=== PATIENT | female | born 1975 | race Caucasian/White ===

== ENCOUNTER 2025-08-11 12:19 | Outpatient (CLI) | payer BC, SELFPAY | END 2025-08-11 23:59 | disposition home or self-care (01) | LOC: LAB.DROPOF 08-12 12:20 | PROVIDERS: PCP Student in an Organized Health Care Education/Training Program; Visit Provider Student in an Organized Health Care Education/Training Program | DX: N39.0 Urinary tract infection, site not specified (principal) | CPT/HCPCS: 87086 ==

== ENCOUNTER 2025-08-12 01:12 | Observation (INO) | payer BC, SELFPAY ==
[2025-08-12] VITALS (14 sets, daily range): BP systolic 100–159; BP diastolic 61–90; PULSE 56–88; RESP 15–20; TEMP 36.6–37; O2SAT 98–100; BMI 21.7
--- NOTE | 2025-08-12 | US_ITS ---
Ultrasound Sonograher: PROCEDURE: US PELVIC CLINICAL INDICATION: COMPARISON: No exams were available for comparison FINDINGS: Transabdominal sonographic images of the pelvis were obtained. Ultrasound was performed intraoperatively during a dilation of the cervix. Patient had retained menses within the uterus. Post dilation the fluid collection was completely resolved. IMPRESSION: 1. Successful dilation of the cervix and evacuation of retained menses. Dictated by: Guille Cruz MD 08/12/2025 16:32 Guille Cruz MD in OV 08/12/2025 16:32
--- NOTE | 2025-08-12 01:20 | CT_ITS ---
PROCEDURE INFORMATION: Exam: CT Abdomen And Pelvis With Contrast Exam date and time: 08/12/2025 2:04 AM Age: 49 years old Clinical indication: Abdominal pain; Additional info: Lower abd pain, amenstrual since delivery 7 mo ago TECHNIQUE: Imaging protocol: Computed tomography of the abdomen and pelvis with contrast. Total images: 272 Radiation optimization: All CT scans at this facility use at least one of these dose optimization techniques: automated exposure control; mA and/or kV adjustment per patient size (includes targeted exams where dose is matched to clinical indication); or iterative reconstruction. Contrast material: ISOVUE; Contrast volume: 75 ml; Contrast route: IV; COMPARISON: No relevant prior studies available. FINDINGS: Lungs: 3 mm juxtapleural right lower lobe nodule, axial image 9. Lung bases are otherwise clear. For patients at low risk (minimal or absent history of smoking and of other known risk factors), no routine follow-up is indicated. For patients at high risk (history of smoking or of other known risk factors), consider optional CT Chest at 12 months. (Reference: Tashia) Heart: Normal heart size. Liver: Focal fatty infiltration near the falciform ligament. 2.8 cm right hepatic lobe cavernous hemangioma with peripheral nodular enhancement. 2 cm left hepatic lobe cavernous hemangioma with peripheral nodular enhancement. Gallbladder and biliary ducts: Normal. No calcified stones. No ductal dilation. Pancreas: Normal. No ductal dilation. Spleen: Normal. No splenomegaly. Adrenal glands: Normal. No mass. Kidneys and ureters: 2-3 mm left intrarenal calculus. No hydronephrosis. Otherwise, unremarkable kidneys. Stomach and bowel: Collapsed stomach. Unremarkable duodenum. No ileus or bowel obstruction. Small bowel appears within normal limits. Fecalization of the terminal ileum. Moderate colonic stool burden. Mild sigmoid diverticulosis without acute diverticulitis. Unremarkable rectum. Appendix: Normal appendix. Intraperitoneal space: No ascites. No free air. Vasculature: Nonaneurysmal abdominal aorta. Major abdominal vessels enhance appropriately. Lymph nodes: Unremarkable. No enlarged lymph nodes. Urinary bladder: Collapsed bladder. Reproductive: Fluid dilated endocervical and endometrial cavity. Anteverted nonenlarged uterus. No visible mass. Physiologic ovaries. Trace free pelvic fluid. Bones/joints: Scattered mild degenerative changes of the thoracolumbar spine. No acute osseous abnormality. Sclerotic bone island right acetabulum. Soft tissues: Tiny fat containing umbilical hernia. IMPRESSION: 1. Fluid dilated endocervical and endometrial cavity. Leading differential of cervical stenosis versus occult obstructing cervical/endocervical mass. 2. Trace free pelvic fluid. 3. Sigmoid diverticulosis without diverticulitis. 4. 2-3 mm left intrarenal calculus. 5. Two benign-appearing cavernous hemangiomas within the liver. REFERENCES: Tashia Streeter, et al. Guidelines for Management of Incidental Pulmonary Nodules Detected on CT Images: From the Fleischner Society 2017. Radiology. 2017;284(1):228-243.
--- NOTE | 2025-08-12 01:24 | HMH.EDGENADL ---
Discharge Plan Disposition Patient Disposition: Admitted Prescriptions Prescriptions: No Action PNV [id number] 90 mg iron- 1 mg-200 mg capsule 1 cap PO DAILY Referrals Follow up/Referrals: Provider,Referral, [Primary Care Provider, Medical] - See instructions Clinical Impressions Clinical Impression: Retained menstruation, Abdominal pain Instructions Patient Instructions: DI for Acute Abdominal Pain Print Language Print Language: [place] Discharge ED Provider: Luis Felipe Jacob General Adult HPI General Chief complaint: Abdominal Pain Stated complaint: abd pain, nausea Time Seen by Provider: 08/12/25 01:17 History of Present Illness HPI narrative: 49-year-old female, 7 months presents for lower abdominal pain. She reports been ongoing for last couple days but is now gotten significantly worse. She had a test and a urinalysis done urgent care earlier that were negative. She denies any menses for the last 7 months since she delivered. She reports some nausea. Denies any upper abdominal pain. Denies any fever at home. Related Data Home Medications ?Medication ?Instructions ?Recorded ?Confirmed vitamins no.102-iron 90 1 cap PO DAILY 06/20/25 06/20/25 mg-folate 1 mg-dha 200 mg capsule Allergies Allergy/AdvReac Type Severity Reaction Status Date / Time Sulfa (Sulfonamide Allergy Intermediate Hives Verified 08/11/25 17:53 Antibiotics) [facility] Disclaimer: The information contained in this section may have been updated after the patient was seen, as this information can be updated by other users. Medical History Dyshidrotic eczema Social History Smoking Status: Never smoker alcohol intake: never current occupational status: unemployed Travel in the last 8 weeks?: None Have you lived/traveled outside US in past 30 days?: No Contact w/someone who lives/traveled outside US past 30 days?: No Exposure to someone with infectious disease in past 14 days?: No Do you have a fever (greater than 100.4 F or 38 C)?: No Have you tested positive for COVID-19?: No Exposed to someone with COVID-19 in past 14 days?: No Do you have a sore throat?: No Do you have a cough?: No Do you have any weakness?: No Do you have any diarrhea?: No Are you experiencing any unusual bleeding?: No Do you have any muscle aches/pain?: No Do you have any abdominal pain?: Yes Are you experiencing loss of taste or smell?: No ROS Obtained: Yes All systems reviewed & no additional complaints except as documented Physical Exam General General appearance: alert and in no apparent distress Head Head exam: atraumatic and normocephalic Eye Eye exam: Present normal appearance, PERRL and EOMI ENT ENT exam: Present normal oropharynx and normal external ear exam Neck Neck exam: Present normal inspection and full ROM Chest Chest inspection: Present normal inspection and symmetric chest wall rise; Absent tenderness Respiratory Respiratory exam: Present normal lung sounds bilaterally; Absent respiratory distress Cardiovascular Cardiovascular exam: Present regular rate and normal rhythm Abdominal Exam Abdominal exam: Present soft and tenderness (Bilateral and central lower abdominal tenderness); Absent distention or guarding Extremities Exam Extremities exam: Present normal inspection; Absent edema or joint swelling Back Exam Back exam: Present normal inspection; Absent tenderness Neurological Exam Neurological exam: Present alert and oriented X3; Absent motor sensory deficit Psychiatric Psychiatric exam: Present normal affect and normal mood Skin Skin exam: Present warm, dry and normal color Lymphatic Lymphatic Findings: no adenopathy Medical Decision Making Medical Records Medical records reviewed: Yes I reviewed the patient's medical records. Screening: Per USPSTF and CDC recommendations, given the prevalence of disease in our region, it is our hospital?s policy to screen for HIV and viral Hepatitis for all patients aged 18 and over and those with ongoing risk factors. Jean Inquiry Pt receiving controlled substance: No Jean was queried for this patient: No Vital Signs: 08/12/25 01:21 Temperature 98.6 F Temperature Source Oral Pulse Rate [Left Radial] 88 Respiratory Rate 16 Blood Pressure [Right Arm] 159/90 H Blood Pressure Mean [Right Arm] 113 Blood Pressure Source [Right Arm] Automatic Cuff Blood Pressure Position [Right Arm] Supine 02 Sat by Pulse Oximetry 98 Oxygen Delivery Method Room Air Lab Data Lab results reviewed: Yes I reviewed the patient's lab results. Lab Results 08/12/25 01:28: WBC 9.3, RBC 4.44, Hgb 13.1, Hct 38.5, MCV 86.7, MCH 29.5, MCHC 34.0, RDW 12.3, Plt Count 284, MPV 9.8, Neut % (Auto) 65.3, Lymph % (Auto) 23.5, [place] % (Auto) 8.6, Eos % (Auto) 1.9, Baso % (Auto) 0.4, Neut # (Auto) 6.1, Lymph # (Auto) 2.2, [place] # (Auto) 0.8, Eos # (Auto) 0.2, Baso # (Auto) 0.0, Sodium 139, Potassium 3.5, Chloride 105, Carbon Dioxide 26, Anion Gap 11.5, BUN 12, Creatinine 0.60, Estimated Creat Clear 94, Estimated GFR 107, Est GFR ( Amer) 129, Glucose 102 H, Calcium 9.2, Magnesium 2.0, Total Bilirubin 0.4, AST 29, ALT 22, Alkaline Phosphatase 127 H, Total Protein 6.9, Albumin 4.3, Globulin 2.6, Albumin/Globulin Ratio 1.7, Lipase 59 08/12/25 01:37: Urine Color Yellow, Urine Appearance Clear, Urine pH 6.0, Ur Specific [place] 1.025, Urine Protein Negative, Urine Glucose (UA) Negative, Urine Ketones Negative, Urine Blood Negative, Urine Nitrate Negative, Urine Bilirubin Negative, Urine Urobilinogen 0.2, Ur Leukocyte Esterase Negative 08/12/25 01:28 08/12/25 01:28 Orders (Tests/Meds): ED MEDICATIONS Generic Name Dose Route Start Last Admin Trade Name Freq PRN Reason Stop Dose Admin Sodium Chloride 10 ml 08/12/25 02:10 08/12/25 02:11 Sodium Chloride 0.9% 10ml Syr (Rad Only) IV 09/11/25 02:09 10 ml NEEDED PRN Administration Maintain IV Site Discontinued Medications Generic Name Dose Route Start Last Admin Trade Name Freq PRN Reason Stop Dose Admin Acetaminophen 1,000 mg 08/12/25 01:20 08/12/25 01:38 Acetaminophen 500mg Tab PO 08/12/25 01:21 1,000 mg ONCE ONE Administration Sodium Chloride 1,000 mls @ 999 mls/hr 08/12/25 01:30 08/12/25 01:38 Sod Chlor 0.9% 1000ml Bag IV 08/12/25 02:30 999 mls/hr .Q1H1M JONES Administration Iopamidol 75 ml 08/12/25 02:10 08/12/25 02:11 Iopamidol-370 (76%);100ml Bottle IV 08/12/25 02:11 75 ml ONCE ONE Administration Ketorolac Tromethamine 30 mg 08/12/25 01:20 08/12/25 01:38 Ketorolac 30mg/Ml Vial IV 08/12/25 01:21 30 mg ONCE ONE Administration Ondansetron HCl 4 mg 08/12/25 01:20 08/12/25 01:38 Ondansetron 4mg/2ml Vial IV 08/12/25 01:21 4 mg ONCE ONE Administration ORDERS Category Date Time Status CT abdomen pelvis w con Stat Cat Scan 08/12/25 01:20 Completed CBC w/Auto Diff [Complete Blood Count Auto Diff] Stat Lab 08/12/25 01:28 Completed CMP [Comprehensive Metabolic Panel] Stat Lab 08/12/25 01: Completed HIV Combo Stat Lab 08/12/25 01: Received Hepatitis C Ab Qual. W/ RFX Stat Lab 08/12/25 01: Received Lipase Stat Lab 08/12/25 01:28 Completed Magnesium Stat Lab 08/12/25 01:28 Completed UA [Urinalysis and Microscopic] Stat Lab 08/12/25 01:37 Results Medical Decision Narrative: 49-year-old female, 7 months , presents for pelvic pain for the last couple of days, worsening. History was obtained via interactive discussion with patient. On arrival, patient is [afebrile, hemodynamically stable, satting appropriately, alert, oriented x4, GCS 15], moving all extremities spontaneously. Full physical exam performed and significant for bilateral and central pelvic pain Differential includes but is not limited to retained menses, ovarian cyst, ovarian torsion, constipation. Patient was given Tylenol Toradol Zofran 1 L IV fluid bolus for symptomatic management and correction of underlying abnormalities. Workup initiated including CBC CMP lipase urinalysis CT abdomen pelvis with IV contrast. On re-evaluation, patient reports some symptomatic improvement Laboratory workup independently interpreted by me and significant for no leukocytosis, no significant electrolyte derangement, negative lipase, negative urine. test from earlier today was negative.. Imaging independently interpreted by me and significant for significant intrauterine fluid collection. See radiology read for full review of final results. Given patient history, exam and workup, patient's presentation most likely represents retained menses. No evidence of infection at this time. On further discussion, patient reports history of cervical stenosis and had to have dilation when she had her IVF for her most recent . This is likely the cause of her retained menses. Interactive discussion was had with EXTRUSION PRESS SUPERVISOR on-call. Patient was admitted for likely operative intervention in the morning.. Procedures Risk/Benefits of Procedure(s) Were Explained: Yes Critical Care Critical Care Time Critical Care Time: No
[2025-08-12 01:38] LABS: Hematocrit 38.5 % (37.0-47.0); Hemoglobin 13.1 g/dL (12.2-16.2); Immature Granulocytes % 0.3 %; Mean Corpuscular HGB Conc 34.0 g/dL (31.8-35.4); Mean Corpuscular Hemoglobin 29.5 pg (27.0-31.2); Mean Corpuscular Volume 86.7 fl (81-99); Nucleated Red Blood Cells % 0 %; Platelet Count 284 K/mm3 (142-424); Red Blood Count 4.44 M/mm3 (4.20-5.40); Red Cell Distribution Width-SD 39.4 fL; White Blood Count 9.3 K/mm3 (4.8-10.8)
[2025-08-12] MEDS: 0.9 % SODIUM CHLORIDE 1000ML 1,000 ML 999 ML IV (01:38)
[2025-08-12] MEDS: KETOROLAC 30MG/ML VIAL 30 MG IV (01:38)
[2025-08-12] MEDS: ONDANSETRON 4MG/2ML VIAL 4 MG IV (01:38)
[2025-08-12] MEDS: ACETAMINOPHEN 500MG TAB 1000 MG PO (01:38)
[2025-08-12 01:40] LABS: Microscopic, Urine URINE MICROSCOPIC (MICROSCOPIC)
[2025-08-12 01:53] LABS: Alanine Aminotransferase 22 U/L (12-78); Albumin Level 4.3 g/dl (3.5-5.0); Albumin/Globulin Ratio 1.7 (1.1-1.8); Alkaline Phosphatase 127 U/L (38-126); Anion Gap 11.5 mEq/L (5-15); Aspartate Amino Transferase 29 U/L (14-36); Bilirubin,Total 0.4 mg/dl (0.2-1.3); Blood Urea Nitrogen 12 mg/dl (7-17); Calcium 9.2 mg/dl (8.4-10.2); Carbon Dioxide 26 mmol/L (22.0-30.0); Chloride 105 mmol/L (98-107); Creatinine Clearance Estimated 94 mL/min (50-200); Creatinine,Serum 0.60 mg/dl (0.52-1.04); Estimated Glomerular Filt Rate 107 ml/min (>60); GFR (African American) 129 ML/MIN (>60); Globulin 2.6 g/dL (1.3-3.2); Glucose 102 mg/dl (74-100); Lipase 59 U/L (23-300); Magnesium 2.0 mg/dl (1.6-2.3); Potassium 3.5 mmoL/L (3.5-5.1); Sodium 139 mmol/L (136-145); Total Protein,Serum 6.9 g/dl (6.3-8.2)
[2025-08-12] MEDS: IOPAMIDOL-370 (76%);100ML BOTTLE 75 ML IV (02:11)
[2025-08-12] MEDS: SODIUM CHLORIDE 0.9% 10ML SYR (RAD ONLY) 10 ML IV (02:11)
[2025-08-12 02:32] LABS: Bilirubin,Urine Negative (Negative); Color,Urine YELLOW (Yellow); Glucose,Urine (UA) Negative (Negative); Ketones,Urine Negative (Negative); Leukocyte Esterase,Urine Negative (Negative); PH,Urine 6.0 (5.0-8.5); Protein,Urine Negative (Negative); Specific Gravity, Urine 1.025 (1.005-1.030); Urobilinogen,Urine 0.2 EU/dl (0.2)
--- NOTE | 2025-08-12 02:55 | PC.NURSE ---
Report received from Radha Negrete in the ED.
[2025-08-12] MEDS: LACTATED RINGERS 1000ML 1,000 ML 50 ML IV (04:00)
[2025-08-12 04:15] LABS: Hepatitis C Ab Qual. W/ RFX NEGATIVE (Negative)
--- NOTE | 2025-08-12 09:36 | PC.NURSE ---
Talked with 's office, Surgery and HS. Decision made for surgery time (11:30) today.
--- NOTE | 2025-08-12 10:00 | EXP.HP ---
History of Present Illness *Admission Date: 08/12/25 *Reason for visit:: Severe lower abdominal pain. *History of present illness: 49-year-old female, 7 months presents for lower abdominal pain. She reports been ongoing for last couple days but is now gotten significantly worse. She had a test and a urinalysis done urgent care earlier that were negative. She denies any menses for the last 7 months since she delivered. She reports some nausea. Denies any upper abdominal pain. Denies any fever at home. She reports that she did have in vitro fertilization and at the time had cervical stenosis. CT scan today shows that she has hematometra with a collection of fluid measuring 6 cm x 3.5 cm. [facility] Disclaimer: The information contained in this section may have been updated after the patient was seen, as this information can be updated by other users. Surgical History History of section Family History Other No significant family history Social History Smoking Status: Never smoker alcohol intake: never current occupational status: unemployed Travel in the last 8 weeks?: None Other Medical History Have you received the Flu Vaccine for this season: No Have you received the Pneumonia Vaccine: No Review of Systems Review of Systems Review of systems:: pertinent systems reviewed and negative unless documented below Meds Home Medications and Allergies Home Medications ?Medication ?Instructions ?Recorded ?Confirmed ?Type vitamins no.102-iron 90 1 cap PO DAILY 06/20/25 08/12/25 History mg-folate 1 mg-dha 200 mg capsule New Prescriptions to Start Prescriptions: Allergies Allergy/AdvReac Type Severity Reaction Status Date / Time Sulfa (Sulfonamide Allergy Intermediate Hives Verified 08/11/25 17:53 Antibiotics) cellulose,oxidized (From AdvReac Irritable Verified 08/12/25 03:38 Surgicel) Exam Data for Last 24 hours Vital signs and Labs for Last 24 Hours: Temp Pulse Resp BP Pulse Ox O2 Del Method 98.6 F 86 18 108/67 L 99 Room Air 08/12/25 08:32 08/12/25 08:32 08/12/25 08:32 08/12/25 08:32 08/12/25 08:47 08/12/25 09:00 Laboratory Results - last 24 hr 08/12/25 01:28: WBC 9.3, RBC 4.44, Hgb 13.1, Hct 38.5, MCV 86.7, MCH 29.5, MCHC 34.0, RDW 12.3, Plt Count 284, MPV 9.8, Neut % (Auto) 65.3, Lymph % (Auto) 23.5, [place] % (Auto) 8.6, Eos % (Auto) 1.9, Baso % (Auto) 0.4, Neut # (Auto) 6.1, Lymph # (Auto) 2.2, [place] # (Auto) 0.8, Eos # (Auto) 0.2, Baso # (Auto) 0.0, Sodium 139, Potassium 3.5, Chloride 105, Carbon Dioxide 26, Anion Gap 11.5, BUN 12, Creatinine 0.60, Estimated Creat Clear 94, Estimated GFR 107, Est GFR ( Amer) 129, Glucose 102 H, Calcium 9.2, Magnesium 2.0, Total Bilirubin 0.4, AST 29, ALT 22, Alkaline Phosphatase 127 H, Total Protein 6.9, Albumin 4.3, Globulin 2.6, Albumin/Globulin Ratio 1.7, Lipase 59, HCV Ab RICHARD w/Rflx PCR Qn Negative, HIV Ag/Ab Combo Qual Negative 08/12/25 01:37: Urine Color Yellow, Urine Appearance Clear, Urine pH 6.0, Ur Specific [place] 1.025, Urine Protein Negative, Urine Glucose (UA) Negative, Urine Ketones Negative, Urine Blood Negative, Urine Nitrate Negative, Urine Bilirubin Negative, Urine Urobilinogen 0.2, Ur Leukocyte Esterase Negative, Urine RBC None, Urine WBC None, Ur Squamous Epith Cells 3-5, Urine Bacteria None I & O for Last 24 hours: Intake & Output 08/09/25 08/10/25 08/11/25 08/12/25 11:59 11:59 11:59 11:59 Intake Total 1000 / 1000 Output Total 0 / 0 Balance 1000 / 1000 Weight 115 lb Constitutional Constitutional: no acute distress *Routine HEENT Exam Head: Present normocephalic Eye: Present EOMI and PERRL ENT: Present mucous membranes moist *Routine Neck Exam Neck: Present supple; Absent lymphadenopathy *Routine Respiratory Exam Respiratory: Present CTA bilaterally *Routine Cardiovascular Exam Cardiovascular: Present RRR *Routine Abdominal Exam Abdominal: Present soft and normoactive bowel sounds; Absent tenderness *Routine Rectal Exam Rectal:: deferred *Routine Genitalia Exam Genitalia:: deferred *Routine Extremities Exam Extremities: Absent cyanosis, clubbing or edema *Routine Skin Exam Skin: Present warm; Absent rash *Routine Neurological Exam Neurological: Present alert and oriented X3 Assessment and Plan *Assessment and plan (1) Abdominal pain: Status: Acute Qualifiers: Abdominal location: unspecified location Qualified Code(s): R10.9 - Unspecified abdominal pain Category: Medical Code(s): R10.9 - Unspecified abdominal pain (2) Retained menstruation: Status: Acute Category: Medical Code(s): N94.89 - Other specified conditions associated with female genital organs and menstrual cycle Plan 1. She has a history of cervical stenosis and CT scan today shows retained fluid within the uterus. 2. She has had cervical stenosis in the past and had to have a dilation of her cervix when she did in vitro fertilization. 3. We will go ahead with a dilation of her cervix under ultrasound guidance to drain her retained blood from the uterus. 4. I told her that it may come back again with menses. 5. We discussed the risks of surgery that includes bleeding, infection, perforation. All questions were send's were signed.
--- NOTE | 2025-08-12 11:18 | P.PNANES_ITS ---
[facility] Disclaimer: The information contained in this section may have been updated after the patient was seen, as this information can be updated by other users. Surgical History History of section Family History Other No significant family history Social History Smoking Status: Never smoker alcohol intake: never substance use type: denies use current occupational status: unemployed Travel in the last 8 weeks?: None [facility] Anesthesia Checklist Patient Identification Patient Identification: Arm Band and Verbal (Name & ) Structural Data Admitted From: Inpatient Planned Operative Procedure/s: Dilation of cervix and drainage or retained menses Consent for Planned Operative Procedure(s) Verified: Yes Verified Documents: Surgical Consent NPO Status Verified Time NPO: 00:00 Chart Verification Results Verified: CBC and BMP Additional verifications Patient : No Anesthesia Reactions: No Airway Assessment Mallampati Score:: Class II C-Spine Mobility Assessed: Yes TMJ Mobility Assessed: Yes Dentition: Good Dentition Neurological Assessment Level of Consciousness: Awake, Alert and Appropriate Hx Seizures: No Numbness or tingling in extremities: No Anesthesia Plan Anesthesia Risk discussed: Yes Anesthesia Plan: Verified ASA Class: II Anesthesia Type: General
--- NOTE | 2025-08-12 12:03 | EXP.OP.NOTE ---
Date of procedure: 08/12/25 Pre-op Diagnosis:: Cervical stenosis, HEMATOMETRA Post-op Diagnosis:: Same Procedure performed:: Cervical dilation and drainage of intrauterine blood Surgeon:: Guille Cruz MD BILLING AND ACCOUNTING STAFF ASSISTANT:: Daniel Dover Anesthesia: LMA Estimated blood loss (mL): 10 Clinical Note:: She is a 49-year-old lady who complains of severe abdominal pain. A CT scan showed that the uterus was full of old blood. She has had a previous history of cervical stenosis. As a result of that she was offered cervical dilation and drainage of the intrauterine fluid. Operative findings:: She had an anteverted uterus that was filled with fluid. The fluid collection was 5.7 cm x 3.7 cm. Operative note:: She was taken the operating room where LMA anesthesia was found be adequate. She is prepped draped normal sterile fashion lithotomy position. A weighted speculum is placed in the vagina and the antilipid the cervix was grasped. There was a small dimple that looked to be filled with mucus. I was able to poke through this thin skin with a dilator and old blood immediately drained from the uterus. The cervix did not need to be dilated as it was sufficiently dilated after opening up the thin membrane overlying the exocervix. The blood was drained and there was no further episode of drainage from the vagina. She tolerated the procedure well and was taken recovery room in excellent condition. All sponge, instrument counts were correct. The estimated blood loss from the patient was 10 cc. There was approximately 30 cc of old blood that came out of the uterine cavity. Condition: stable Disposition: PACU Specimens:: None Complications:: None
--- NOTE | 2025-08-12 12:04 | P.PNANES_ITS ---
[facility] Anesthesia Record Part I Anesthesia Record I Intake, IV Amount: 300 Hydration: Adequate Estimated blood loss (mL): 10 Urine output (mL): 0 Blood Products used (#): none Blood Pressure: 100/61 SaO2: 98 Pulse Rate: 62 Airway Patency: Patent Respiratory Rate: 15 Temperature: 98.0 F Patient is:: Oral/Nasal airway, Stable and Somnolent Stable to PACU at:: 12:02
--- NOTE | 2025-08-12 12:57 | PC.NURSE ---
Pt changing into regular clothes, mesh panties and pad provided. Asks how soon she can be discharged home. remains at bs attentive to needs.
--- NOTE | 2025-08-12 13:32 | PC.NURSE ---
at to see pt.
--- NOTE | 2025-08-12 13:40 | EXP.DC.SUM ---
General Admission date:: 08/12/25 Discharge date: 08/12/25 HPI HPI HPI: 49-year-old female, 7 months presents for lower abdominal pain. She reports been ongoing for last couple days but is now gotten significantly worse. She had a test and a urinalysis done urgent care earlier that were negative. She denies any menses for the last 7 months since she delivered. She reports some nausea. Denies any upper abdominal pain. Denies any fever at home. She reports that she did have in vitro fertilization and at the time had cervical stenosis. CT scan today shows that she has hematometra with a collection of fluid measuring 6 cm x 3.5 cm. Hospital Course Hospital Course Hospital Course: On August 12, 2025 she underwent a examination under anesthesia and dilation of the cervix. She had a membrane over the exocervix and this was easily penetrated allowing 30 cc of fluid within the uterus to be expressed. She has done well postoperatively and has remained afebrile throughout her hospitalization. She is discharged home to follow-up with me in approximately 2 weeks time. She will abstain from sexual activity for the next week or 2. She was not given any restrictions with respect to driving. She we will just take ibuprofen or Aleve for any discomfort. Her condition on discharge is stable and improved. Exam Data for Last 24 hours Vital signs and Labs for Last 24 Hours: Temp Pulse Resp BP Pulse Ox O2 Del Method 98.6 F 59 L 18 111/71 100 Room Air 08/12/25 12:35 08/12/25 12:35 08/12/25 12:35 08/12/25 12:35 08/12/25 12:35 08/12/25 12:35 Laboratory Results - last 24 hr 08/12/25 01:28: WBC 9.3, RBC 4.44, Hgb 13.1, Hct 38.5, MCV 86.7, MCH 29.5, MCHC 34.0, RDW 12.3, Plt Count 284, MPV 9.8, Neut % (Auto) 65.3, Lymph % (Auto) 23.5, [place] % (Auto) 8.6, Eos % (Auto) 1.9, Baso % (Auto) 0.4, Neut # (Auto) 6.1, Lymph # (Auto) 2.2, [place] # (Auto) 0.8, Eos # (Auto) 0.2, Baso # (Auto) 0.0, Sodium 139, Potassium 3.5, Chloride 105, Carbon Dioxide 26, Anion Gap 11.5, BUN 12, Creatinine 0.60, Estimated Creat Clear 94, Estimated GFR 107, Est GFR ( Amer) 129, Glucose 102 H, Calcium 9.2, Magnesium 2.0, Total Bilirubin 0.4, AST 29, ALT 22, Alkaline Phosphatase 127 H, Total Protein 6.9, Albumin 4.3, Globulin 2.6, Albumin/Globulin Ratio 1.7, Lipase 59, HCV Ab RICHARD w/Rflx PCR Qn Negative, HIV Ag/Ab Combo Qual Negative 08/12/25 01:37: Urine Color Yellow, Urine Appearance Clear, Urine pH 6.0, Ur Specific [place] 1.025, Urine Protein Negative, Urine Glucose (UA) Negative, Urine Ketones Negative, Urine Blood Negative, Urine Nitrate Negative, Urine Bilirubin Negative, Urine Urobilinogen 0.2, Ur Leukocyte Esterase Negative, Urine RBC None, Urine WBC None, Ur Squamous Epith Cells 3-5, Urine Bacteria None I & O for Last 24 hours: Intake & Output 08/10/25 08/11/25 08/12/25 08/13/25 11:59 11:59 11:59 11:59 Intake Total 1250 / 1250 300 / 300 Output Total 0 / 0 Balance 1250 / 1250 300 / 300 Weight 115 lb Constitutional Constitutional: no acute distress *Routine HEENT Exam Head: Present normocephalic *Routine Respiratory Exam Respiratory: Present normal respiratory effort; Absent accessory muscle use Results Data Completed and Pending Labs on day of discharge: Labs from last 24 hours 08/12/25 08/12/25 01:37 01:28 WBC 9.3 RBC 4.44 Hgb 13.1 Hct 38.5 MCV 86.7 MCH 29.5 MCHC 34.0 RDW 12.3 Plt Count 284 MPV 9.8 Neut % (Auto) 65.3 Lymph % (Auto) 23.5 [place] % (Auto) 8.6 Eos % (Auto) 1.9 Baso % (Auto) 0.4 Neut # (Auto) 6.1 Lymph # (Auto) 2.2 [place] # (Auto) 0.8 Eos # (Auto) 0.2 Baso # (Auto) 0.0 Sodium 139 Potassium 3.5 Chloride 105 Carbon Dioxide 26 Anion Gap 11.5 BUN 12 Creatinine 0.60 Estimated Creat Clear 94 Estimated GFR 107 Est GFR ( Amer) 129 Glucose 102 H Calcium 9.2 Magnesium 2.0 Total Bilirubin 0.4 AST 29 ALT 22 Alkaline Phosphatase 127 H Total Protein 6.9 Albumin 4.3 Globulin 2.6 Albumin/Globulin Ratio 1.7 Lipase 59 Urine Color Yellow Urine Appearance Clear Urine pH 6.0 Ur Specific [place] 1.025 Urine Protein Negative Urine Glucose (UA) Negative Urine Ketones Negative Urine Blood Negative Urine Nitrate Negative Urine Bilirubin Negative Urine Urobilinogen 0.2 Ur Leukocyte Esterase Negative Urine RBC None Urine WBC None Ur Squamous Epith Cells 3-5 Urine Bacteria None HCV Ab RICHARD w/Rflx PCR Qn Negative HIV Ag/Ab Combo Qual Negative DS: Diagnosis Discharge Diagnosis (1) Abdominal pain: Status: Acute Code(s): R10.9 - Unspecified abdominal pain Qualifiers: Abdominal location: unspecified location Qualified Code(s): R10.9 - Unspecified abdominal pain (2) Retained menstruation: Status: Acute Code(s): N94.89 - Other specified conditions associated with female genital organs and menstrual cycle Meds Home Medications and Allergies Home Medications ?Medication ?Instructions ?Recorded ?Confirmed ?Type vitamins no.102-iron 90 1 cap PO DAILY 06/20/25 08/12/25 History mg-folate 1 mg-dha 200 mg capsule New Prescriptions to Start Prescriptions: Allergies Allergy/AdvReac Type Severity Reaction Status Date / Time Sulfa (Sulfonamide Allergy Intermediate Hives Verified 08/11/25 17:53 Antibiotics) cellulose,oxidized (From AdvReac Irritable Verified 08/12/25 03:38 Surgicel) Discharge Plan Disposition Patient Disposition: Home, Self-Care Condition: Good Follow up Plan Follow up with: Guille Cruz MD [Staff Physician, [employer]] - 08/28/25 8:45 am ProviderTrinidad MD [Primary Care Provider, Medical] - See instructions Prescriptions/Medication Reconciliation: Continued PNV [id number] 90 mg iron- 1 mg-200 mg capsule 1 cap PO DAILY Problem Reconciliation Problems Reviewed?: Yes Patient Discharge Instructions ACTIVITY: Continue current activity Additional Instructions: SEE SURGERY/PROCEDURE AFTERCARE TEACHING SHEET Patient Instructions: DI for Acute Abdominal Pain Print Language: Latvian Providers Primary Care Provider: NeryReferral Admit Provider: Guille Cruz Attending Provider: Guille Cruz
--- NOTE | 2025-08-12 13:58 | PC.NURSE ---
Verbalized understanding of discharge instructions.
--- NOTE | 2025-08-13 13:08 | P.PNANES_ITS ---
[facility] Anesthesia Record Part II Anesthesia Record Part II Discharge Time: 12:32 Destination: Obstetric PACU nurse assessment reviewed?: Yes Patient Condition:: Good Anesthesia Complications:: None Swallowing reflex intact?: Yes Airway Patency: Patent Cyanosis?: No Blood Pressure: 105/65 SaO2: 98 Respiratory Rate: 15 Pulse Rate: 56 Temperature: 98.0 F Mental Status: Alert & Oriented Pain level:: 0 Nausea and/or vomitting:: None Intake, IV Amount: 0 Hydration: Adequate
[2025-08-13 13:10] VITALS: BP 105/65; PULSE 56; RESP 15; TEMP 36.7; O2SAT 98
== END 2025-08-12 14:00 | disposition home or self-care (01) ==
LOC: ER 01:31 → OB 02:50
PROVIDERS: Admitting Provider Nurse Practitioner Obstetrics & Gynecology; Emergency Provider Emergency Medicine; Visit Provider Nurse Practitioner Obstetrics & Gynecology
PROC: (CPT 58120; principal; 2025-08-12 11:30)
DX: N85.7 Hematometra (principal); N94.89 Other specified conditions associated with female genital organs and menstrual cycle; K57.30 Diverticulosis of large intestine without perforation or abscess without bleeding; N20.0 Calculus of kidney; Z88.2 Allergy status to sulfonamides; Z91.048 Other nonmedicinal substance allergy status; Z56.0 Unemployment, unspecified
CPT/HCPCS: 57800; 74177; 76856; 80053; 81001; 83690; 83735; 85025; 86803; 87389; 96361; 96374; 96375; 99285; G0378; J1100; J1885; J2003; J2250; J2405; J2704; J3010; J7030; J7120; Q9967